=== PATIENT | male | born 1945 | race Two or more races ===

== ENCOUNTER 2018-06-07 07:20 | Day surgery (SDC) | payer MEDICARE, OTHER ==
[2018-06-07 08:18] LABS: ADD MAN DIFF? NO
[2018-06-07 08:20] LABS: BASOPHILS % 0.3 % (0.0-2.0); EOSINOPHILS # 0.1 10^3/ul (0.0-0.5); EOSINOPHILS % 1.8 % (0.0-7.0); HEMATOCRIT 39.9 % (42.0-52.0); LYMPHOCYTES # 1.8 10^3/ul (0.8-2.9); LYMPHOCYTES % 30.3 % (15.0-51.0); MEAN CORPUSCULAR HEMOGLOBIN 28.4 pg (29.0-33.0); MEAN CORPUSCULAR HGB CONC 32.6 g/dl (32.0-37.0); MEAN CORPUSCULAR VOLUME 87.3 fl (82.0-101.0); MEAN PLATELET VOLUME 10.1 fl (7.4-10.4); MONOCYTE # 0.6 10^3/ul (0.3-0.9); MONOCYTES % 10.5 % (0.0-11.0); NEUTROPHIL # 3.5 10^3/ul (1.6-7.5); NEUTROPHILS % 56.9 % (39.0-77.0); PLATELET COUNT 201 10^3/UL (140-415); RED BLOOD COUNT 4.57 10^6/ul (4.70-6.10); RED CELL DISTRIBUTION WIDTH 12.8 % (11.5-14.5)
[2018-06-07 08:20] LABS: WHITE BLOOD COUNT 6.1 10^3/ul (4.8-10.8)
[2018-06-07 08:40] LABS: INR 0.93; PARTIAL THROMBOPLASTIN TIME 27.9 Sec (23.0-35.0); PROTIME 12.5 Sec (11.9-14.9)
[2018-06-07 08:42] LABS: ANION GAP 8 (5-13); BLOOD UREA NITROGEN 16 mg/dl (7-20); CALCIUM 9.3 mg/dl (8.4-10.2); CARBON DIOXIDE 29 mmol/L (21-31); CHLORIDE 105 mmol/L (97-110); CHOL/HDL RATIO 3.7 RATIO; CHOLESTEROL 135 mg/dl (100-200); CREATININE 1.06 mg/dl (0.61-1.24); GLUCOSE 107 mg/dl (70-220); HDL CHOLESTEROL 36 mg/dl (31-75); LDL CHOLESTEROL,CALCULATED 72 mg/dl; POTASSIUM 4.7 mmol/L (3.5-5.1); SODIUM 142 mmol/L (135-144); TRIGLYCERIDES 135 mg/dl (0-149)
[2018-06-07] MEDS ORDERED: MIDAZOLAM 1 MG/ML 2 ML INJ (09:01)
[2018-06-07] MEDS ORDERED: HEPARIN 1000 UNITS/ML 10 ML INJ (09:01)
[2018-06-07] MEDS ORDERED: IODIXANOL LOCM 100 ML BTL (09:01)
[2018-06-07] MEDS ORDERED: LIDOCAINE 2% (MDV) 20 ML INJ (09:01)
[2018-06-07] MEDS ORDERED: VERAPAMIL 5 MG INJ (09:02)
[2018-06-07] MEDS ORDERED: NITROGLYCERIN (IC) 100 MCG/ML INJ (09:02)
[2018-06-07] MEDS ORDERED: FENTAnyl 50 MCG/ML VIAL (09:02)
[2018-06-07] MEDS ORDERED: CLOPIDOGREL 300 MG TAB (10:25)
[2018-06-07] MEDS ORDERED: ASPIRIN 325 MG TAB (10:26)
[2018-06-07] MEDS ORDERED: AL HYDROX/MG HYDROX/SIMETH 30 ML CUP PO (11:00)
[2018-06-07] MEDS ORDERED: OXYCODONE/ACETAMINOPHEN (5/325) TAB PO (11:00)
[2018-06-07] MEDS: SOD CHLORIDE 0.9% 1,000 ML IV (11:00)
[2018-06-07] MEDS ORDERED: ACETAMINOPHEN 325 MG TAB PO (11:00)
[2018-06-07] MEDS ORDERED: ZOLPIDEM 5 MG TAB PO (11:00)
[2018-06-07] MEDS ORDERED: morphine 2 MG INJ IV (11:00)
[2018-06-07] MEDS ORDERED: ONDANSETRON 4 MG INJ IV (11:00)
[2018-06-07 13:34] LABS: CHOLESTEROL 122 mg/dl (100-200)
[2018-06-07 13:34] LABS: CHOL/HDL RATIO 3.6 RATIO; HDL CHOLESTEROL 33 mg/dl (31-75); LDL CHOLESTEROL,CALCULATED 73 mg/dl; TRIGLYCERIDES 81 mg/dl (0-149)
[2018-06-07] MEDS ORDERED: NITROGLYCERIN (SL) 0.4 MG TAB SL (22:00)
[2018-06-07] MEDS ORDERED: ALBUTEROL HFA 8 GM INHALER INH (22:00)
[2018-06-08 08:11] LABS: ADD MAN DIFF? NO
[2018-06-08 08:18] LABS: WHITE BLOOD COUNT 5.7 10^3/ul (4.8-10.8)
[2018-06-08 08:18] LABS: BASOPHILS % 0.5 % (0.0-2.0); EOSINOPHILS # 0.1 10^3/ul (0.0-0.5); EOSINOPHILS % 1.4 % (0.0-7.0); HEMATOCRIT 38.1 % (42.0-52.0); HEMOGLOBIN 12.8 g/dl (14.0-18.0); LYMPHOCYTES # 1.2 10^3/ul (0.8-2.9); LYMPHOCYTES % 20.5 % (15.0-51.0); MEAN CORPUSCULAR HEMOGLOBIN 28.8 pg (29.0-33.0); MEAN CORPUSCULAR HGB CONC 33.6 g/dl (32.0-37.0); MEAN CORPUSCULAR VOLUME 85.6 fl (82.0-101.0); MEAN PLATELET VOLUME 10.1 fl (7.4-10.4); MONOCYTE # 0.5 10^3/ul (0.3-0.9); MONOCYTES % 8.4 % (0.0-11.0); NEUTROPHIL # 3.9 10^3/ul (1.6-7.5); NEUTROPHILS % 68.8 % (39.0-77.0); PLATELET COUNT 195 10^3/UL (140-415); RED BLOOD COUNT 4.45 10^6/ul (4.70-6.10); RED CELL DISTRIBUTION WIDTH 12.6 % (11.5-14.5)
[2018-06-08] MEDS: BENAZEPRIL 20 MG TAB PO (08:18)
[2018-06-08] MEDS: ASPIRIN (EC) 81 MG TAB PO (08:18)
[2018-06-08] MEDS: FINASTERIDE 5 MG TAB PO (08:18)
[2018-06-08] MEDS: CLOPIDOGREL 75 MG TAB PO (08:18)
[2018-06-08] MEDS: METOPROLOL 25 MG TAB PO (08:19)
[2018-06-08 08:43] LABS: ANION GAP 9 (5-13); BLOOD UREA NITROGEN 14 mg/dl (7-20); CALCIUM 9.2 mg/dl (8.4-10.2); CARBON DIOXIDE 26 mmol/L (21-31); CHLORIDE 104 mmol/L (97-110); CREATINE KINASE 185 IU/L (23-200); CREATININE 0.87 mg/dl (0.61-1.24); GLUCOSE 108 mg/dl (70-220); POTASSIUM 4.3 mmol/L (3.5-5.1); SODIUM 139 mmol/L (135-144)
[2018-06-08 09:00] LABS: CK-MB 5.64 ng/ml (0.0-2.4)
[2018-06-08 09:03] LABS: TROPONIN-I 0.754 ng/ml (0.000-0.120)
[2018-06-08] MEDS ORDERED: DOXAZOSIN 4 MG TAB PO (21:00)
[2018-06-08] MEDS ORDERED: ATORVASTATIN 40 MG TAB PO (21:00)
[2018-06-08] MEDS ORDERED: NIACIN 50 MG TAB PO (21:00)
== END 2018-06-08 15:40 | disposition home or self-care (01) ==
LOC: SDS 07:20 → TEL 11:33 → SDS 12:32 → TEL 12:32
DX: I25.10 Atherosclerotic heart disease of native coronary artery without angina pectoris (principal); I10 Essential (primary) hypertension; E78.5 Hyperlipidemia, unspecified; R94.39 Abnormal result of other cardiovascular function study; Z79.82 Long term (current) use of aspirin
CPT/HCPCS: 71045; 80048; 80061; 82550; 82553; 84484; 85025; 85610; 85730; 93005; 93458